=== PATIENT | female | born 1970 | race Caucasian/White ===

== ENCOUNTER → 2020-10-24 | Outpatient (CLI) | payer SELFPAY ==
[~2020-10-24] MED LIST: GADOBUTROL 10 MMOL/10 ML (GADAVIST) VIAL IV ONE
--- NOTE | 2020-10-24 17:52 | Diagnostic Imaging Report ---
PROCEDURE: MR imaging of the brain with and without contrast. TECHNIQUE: Multiplanar, multisequence MR imaging of the brain was performed with and without contrast. INDICATION: Pain behind both eyes since July. Occipital headache. COMPARISON: None available. FINDINGS: No acute ischemia, mass, or hemorrhage. No abnormal enhancement is seen. A small amount of focal T2 hyperintense signal seen in the subcortical white matter, greatest in the bilateral frontal lobes. The ventricles, cortical sulci, and basilar cisterns are symmetric and unremarkable. The sellar and suprasellar regions have a normal appearance. The major intracranial flow voids are intact. The brainstem and posterior fossa are unremarkable. The paranasal sinuses and mastoid air cells demonstrate normal signal characteristics. Bilateral lens implants are noted. The globes and orbits are symmetric and unremarkable. The scalp and calvarium have a normal appearance. IMPRESSION: 1. No acute ischemia, mass, or hemorrhage. No abnormal enhancement. 2. Small amount of focal T2 hyperintense signal in the subcortical white matter of the bilateral frontal lobes. This is nonspecific and may represent sequelae of migraine versus chronic microvascular disease. Dictated by: Dictated on workstation # [id number]
== END ==
LOC: RAD 14:48
PROVIDERS: ATTEND Nurse Practitioner Family
DX: H54.62 Unqualified visual loss, left eye, normal vision right eye (principal)
CPT/HCPCS: 70553

== ENCOUNTER 2020-11-03 19:03 | Emergency (ER) | payer OTHER ==
[~2020-11-03] VITALS: Ht 177.8 cm; Wt 92.5 kg
--- NOTE | 2020-11-03 19:24 | ED General ---
General Stated Complaint: HEAD/ARM/LEG PAIN Source of Information: Patient Exam Limitations: No Limitations History of Present Illness Date Seen by Provider: Nov 03, 2020 Time Seen by Provider: 19:22 Initial Comments To ER with bilateral arm pain bilateral leg pain, severe headache onset 630 this evening. She is been having headaches for which she saw primary care and had an MRI done. This was believed to be related to migraine. She was given a prescription for Imitrex. She took her first Imitrex this evening at 530. She had severe vomiting thereafter. She has light sensitivity. States she is allergic to hydrocodone and oxycodone, the only thing she can take is Dilaudid. Timing/Duration: 1-2 Days Severity: Moderate Associated Systoms: Headaches, Nausea/Vomiting Allergies and Home Medications Allergies Coded Allergies: No Known Drug Allergies (Unverified , 10/24/20) Patient Home Medication List Home Medication List Reviewed: Yes Review of Systems Review of Systems Constitutional: see HPI EENTM: see HPI Respiratory: no symptoms reported Cardiovascular: no symptoms reported Genitourinary: no symptoms reported Musculoskeletal: no symptoms reported Skin: no symptoms reported Psychiatric/Neurological: See HPI, Headache Hematologic/Lymphatic: No Symptoms Reported Immunological/Allergic: no symptoms reported Physical Exam Vital Signs Capillary Refill : Height, Weight, BMI Height: '" Weight: lbs. oz. kg; BMI Method: General Appearance: No Apparent Distress, WD/WN, Other (Wearing dark sunglasses no distress alert and oriented.) Eyes: Bilateral Eye Normal Inspection, Bilateral Eye PERRL, Bilateral Eye EOMI HEENT: PERRL/EOMI, TMs Normal Neck: Full Range of Motion, Normal Inspection Respiratory: No Accessory Muscle Use, No Respiratory Distress Gastrointestinal: Normal Bowel Sounds, Non Tender, Soft Extremity: Normal Capillary Refill, Normal Inspection Neurologic/Psychiatric: Alert, Oriented x3 Skin: Normal Color, Warm/Dry Progress/Results/Core Measures Suspected Sepsis SIRS Temperature: Pulse: Respiratory Rate: Laboratory Tests 11/03/20 19:35: White Blood Count 8.6 Blood Pressure / Mean: Laboratory Tests 11/03/20 19:35: Creatinine 0.97, Platelet Count 169, Total Bilirubin 0.3 Results/Orders Lab Results Laboratory Tests Test 11/03/20 19:35 Range/Units White Blood Count 8.6 4.3-11.0 10^3/uL Red Blood Count 5.47 H 3.80-5.11 10^6/uL Hemoglobin 15.1 11.5-16.0 g/dL Hematocrit 45 35-52 % Mean Corpuscular Volume 83 80-99 fL Mean Corpuscular Hemoglobin 28 25-34 pg Mean Corpuscular Hemoglobin Concent 33 32-36 g/dL Red Cell Distribution Width 12.8 10.0-14.5 % Platelet Count 169 130-400 10^3/uL Mean Platelet Volume 11.3 9.0-12.2 fL Immature Granulocyte % (Auto) 1 % Neutrophils (%) (Auto) 57 42-75 % Lymphocytes (%) (Auto) 31 12-44 % Monocytes (%) (Auto) 8 0-12 % Eosinophils (%) (Auto) 3 0-10 % Basophils (%) (Auto) 1 0-10 % Neutrophils # (Auto) 4.9 1.8-7.8 10^3/uL Lymphocytes # (Auto) 2.7 1.0-4.0 10^3/uL Monocytes # (Auto) 0.7 0.0-1.0 10^3/uL Eosinophils # (Auto) 0.3 0.0-0.3 10^3/uL Basophils # (Auto) 0.1 0.0-0.1 10^3/uL Immature Granulocyte # (Auto) 0.1 0.0-0.1 10^3/uL Sodium Level 134 L 135-145 MMOL/L Potassium Level 4.7 3.6-5.0 MMOL/L Chloride Level 97 L 98-107 MMOL/L Carbon Dioxide Level 24 21-32 MMOL/L Anion Gap 13 5-14 MMOL/L Blood Urea Nitrogen 14 7-18 MG/DL Creatinine 0.97 0.60-1.30 MG/DL Estimat Glomerular Filtration Rate > 60 BUN/Creatinine Ratio 14 Glucose Level 484 *H 70-105 MG/DL Calcium Level 10.0 8.5-10.1 MG/DL Corrected Calcium 9.8 8.5-10.1 MG/DL Total Bilirubin 0.3 0.1-1.0 MG/DL Aspartate Amino Transf (AST/SGOT) 18 5-34 U/L Alanine Aminotransferase (ALT/SGPT) 21 0-55 U/L Alkaline Phosphatase 131 40-136 U/L C-Reactive Protein High Sensitivity 1.30 H 0.00-0.50 MG/DL Total Protein 7.9 6.4-8.2 GM/DL Albumin 4.3 3.2-4.5 GM/DL My Orders Orders - BLANCA HARRIS APRN Cbc With Automated Diff (11/03/20 19:21) Comprehensive Metabolic Panel (11/03/20 19:21) Hs C Reactive Protein (11/03/20 19:21) Ct Head Wo (11/03/20 19:21) Ketorolac Injection (Toradol Injection) (11/03/20 19:30) Prochlorperazine Injection (Compazine In (11/03/20 19:30) Diphenhydramine Injection (Benadryl Inje (11/03/20 19:30) Ns Iv 1000 Ml (Sodium Chloride 0.9%) (11/03/20 19:30) Ns Iv 1000 Ml (Sodium Chloride 0.9%) (11/03/20 20:30) Insulin (Regular) Human (Novolin R (Per (11/03/20 20:30) Beta Hydroxybutyrate (11/03/20 20:18) Medications Given in ED Current Medications Medications Dose Ordered Sig/Holly Route Start Time Stop Time Status Last Admin Dose Admin Diphenhydramine HCl 50 mg ONCE ONCE IVP 11/03/20 19:30 11/03/20 19:31 DC 11/03/20 19:41 50 MG Ketorolac Tromethamine 30 mg ONCE ONCE IVP 11/03/20 19:30 11/03/20 19:31 DC 11/03/20 19:41 30 MG Prochlorperazine Edisylate 10 mg ONCE ONCE IV 11/03/20 19:30 11/03/20 19:31 DC 11/03/20 19:41 10 MG Vital Signs/I&O Capillary Refill : Departure Impression Primary Impression: Headache Additional Impression: Hyperglycemia Disposition: 01 HOME, SELF-CARE Condition: Stable Departure-Patient Inst. Decision time for Depature: 20:26 Referrals: NO,LOCAL PHYSICIAN (PCP/Family) Primary Care Physician BLANCA HARRIS APRN Nov 03, 2020 19:24
[2020-11-03] MEDS ORDERED: PROCHLORPERAZINE 10 MG/2ML INJ (COMPAZINE) IV ONE (19:30)
[2020-11-03] MEDS ORDERED: diphenhydrAMINE 50 MG/ML INJ (BENADRYL) IVP ONE (19:30)
[2020-11-03] MEDS ORDERED: NS IV 1000 ML 1,000 ML IV SCH ×2 (19:30→20:30)
[2020-11-03] MEDS ORDERED: KETOROLAC 30 MG/ML VIAL IVP ONE (19:30)
[2020-11-03 19:53] LABS: BASOPHILS # (AUTO) 0.1 10^3/uL (0.0-0.1); BASOPHILS % (AUTO) 1 % (0-10); EOSINOPHILS # (AUTO) 0.3 10^3/uL (0.0-0.3); EOSINOPHILS % (AUTO) 3 % (0-10); HEMATOCRIT 45 % (35-52); HEMOGLOBIN 15.1 g/dL (11.5-16.0); LYMPHOCYTES # (AUTO) 2.7 10^3/uL (1.0-4.0); LYMPHOCYTES % (AUTO) 31 % (12-44); MEAN CORPUSCULAR HEMOGLOBIN 28 pg (25-34); MEAN CORPUSCULAR HGB CONC 33 g/dL (32-36); MEAN CORPUSCULAR VOLUME 83 fL (80-99); MEAN PLATELET VOLUME 11.3 fL (9.0-12.2); MONOCYTES # (AUTO) 0.7 10^3/uL (0.0-1.0); MONOCYTES % (AUTO) 8 % (0-12); NEUTROPHILS # (AUTO) 4.9 10^3/uL (1.8-7.8); NEUTROPHILS % (AUTO) 57 % (42-75); PLATELET COUNT 169 10^3/uL (130-400); WHITE BLOOD COUNT 8.6 10^3/uL (4.3-11.0)
--- NOTE | 2020-11-03 20:06 | Diagnostic Imaging Report ---
PROCEDURE: CT head without contrast. TECHNIQUE: Multiple contiguous axial images were obtained through the brain without the use of intravenous contrast. Auto Exposure Controls were utilized during the CT exam to meet ALARA standards for radiation dose reduction. INDICATION: Headache, dizziness, and blurry vision. EXAMINATION: CT brain without contrast from 11/03/2020 FINDINGS: There is atrophy. Chronic ischemic changes noted with no acute hemorrhage or infarct. No mass, mass effect or midline shift. No hydrocephalus. There is no acute sinus disease. Visualized mastoid air cells clear. IMPRESSION: 1. No acute process. Dictated by: Dictated on workstation # [id number]
[2020-11-03 20:13] LABS: ALANINE AMINOTRANSFERASE 21 U/L (0-55); ALBUMIN 4.3 GM/DL (3.2-4.5); ALKALINE PHOSPHATASE 131 U/L (40-136); BILIRUBIN,TOTAL 0.3 MG/DL (0.1-1.0); BUN/CREATININE RATIO 14; CARBON DIOXIDE 24 MMOL/L (21-32); CHLORIDE 97 MMOL/L (98-107); CREATININE SERUM 0.97 MG/DL (0.60-1.30); GFR ESTIMATED > 60; POTASSIUM 4.7 MMOL/L (3.6-5.0); SODIUM 134 MMOL/L (135-145); TOTAL PROTEIN 7.9 GM/DL (6.4-8.2)
[2020-11-03 20:17] LABS: GLUCOSE 484 MG/DL (70-105)
[2020-11-03] MEDS ORDERED: inSUlin (REGULAR) HUMAN 1 UNIT/0.01 ML (CHARGE PER UNIT) IV SCH (20:30)
[2020-11-03 21:20] VITALS: BP 148/76
== END 2020-11-03 21:23 | disposition home or self-care (01) ==
LOC: EDUNIT# 19:03 → ER 19:05
DX: R51.9 Headache, unspecified (principal); R73.9 Hyperglycemia, unspecified
CPT/HCPCS: 36415; 70450; 80053; 82010; 82962; 85025; 86141

== ENCOUNTER → 2021-03-08 | Outpatient (CLI) | payer OTHER ==
--- NOTE | 2021-03-08 18:04 | Diagnostic Imaging Report ---
Clinical indication: Patient with history of previous cervical spine surgery in 1994. Patient is having head and neck pain impairing her vision. Exam: MRI of the cervical spine performed without IV contrast. Sequences include sagittal T1, sagittal T2, sagittal T2 fat-sat, and axial T2. Comparison: None. Findings: There is no acute cervical spine fracture or dislocation. There is mixed Modic type I and type II degenerative signal changes involving the T6-T7 endplate regions. There is no significant paraspinal soft tissue abnormality. Limited visualization of posterior fossa is unremarkable. There is slight deformity of the cervical cord seen at C5-C6 level due to degenerative disease. There is no definite cord signal abnormality. There is no significant paraspinal soft tissue abnormality. There is multilevel cervical spine vertebral body spurs and facet arthropathy. C1-C2: There is no significant central canal narrowing. C2-C3: There is diffuse disk bulge with small to moderate-sized central posterior disk herniation and mild bilateral facet arthropathy. There is ligament flavum buckling. There is moderate central canal stenosis. There is no significant neural foramen narrowing. C3-C4: There is a small posterior disk bulge. There is mild to moderate central canal stenosis. There is no significant neural foramen narrowing. C4-C5: There is a subtle mild diffuse disk bulge with mild to moderate loss of disk space height. There is mild central canal narrowing. There is no significant neural foramen narrowing. C5-C6: There is a diffuse disk bulge and moderate loss of disk space height with endplate irregularity. There is severe central canal stenosis. There is no significant neural foramen narrowing. C6-C7: There is a diffuse disk bulge with mild loss of disk space height. There are small bilateral uncinate spurs. There is moderate to severe central canal stenosis. There is severe left neural foramen narrowing and mild right neural foramen narrowing. C7-T1: Unremarkable. Impression: There is severe multilevel cervical spine degenerative disk disease, as described above. Dictated by: Dictated on workstation # [id number]
== END ==
LOC: RAD 14:00
DX: M48.02 Spinal stenosis, cervical region (principal); M50.31 Other cervical disc degeneration, high cervical region; G43.011 Migraine without aura, intractable, with status migrainosus; Z98.890 Other specified postprocedural states
CPT/HCPCS: 72141

== ENCOUNTER → 2021-05-04 | Outpatient (CLI) | payer OTHER | LOC: EDUNIT# 03-22 13:22 → WOUNDCARE 12:55 | PROVIDERS: ATTEND Surgery | DX: E11.621 Type 2 diabetes mellitus with foot ulcer (principal); E11.42 Type 2 diabetes mellitus with diabetic polyneuropathy; L97.522 Non-pressure chronic ulcer of other part of left foot with fat layer exposed; T65.222A Toxic effect of tobacco cigarettes, intentional self-harm, initial encounter; F17.218 Nicotine dependence, cigarettes, with other nicotine-induced disorders | CPT/HCPCS: 11042; A6197; G0463 ==

== ENCOUNTER → 2021-06-02 | Outpatient (CLI) | payer OTHER | LOC: WOUNDCARE 09:27 | PROVIDERS: ATTEND Surgery | DX: E11.621 Type 2 diabetes mellitus with foot ulcer (principal); I96 Gangrene, not elsewhere classified; E11.42 Type 2 diabetes mellitus with diabetic polyneuropathy; L97.522 Non-pressure chronic ulcer of other part of left foot with fat layer exposed; T65.222A Toxic effect of tobacco cigarettes, intentional self-harm, initial encounter; F17.218 Nicotine dependence, cigarettes, with other nicotine-induced disorders | CPT/HCPCS: 11042; G0463 ==

== ENCOUNTER → 2021-06-16 | Outpatient (CLI) | payer OTHER | LOC: WOUNDCARE 08:55 | PROVIDERS: ATTEND Surgery | DX: E11.621 Type 2 diabetes mellitus with foot ulcer (principal); E11.42 Type 2 diabetes mellitus with diabetic polyneuropathy; L97.522 Non-pressure chronic ulcer of other part of left foot with fat layer exposed; T65.222A Toxic effect of tobacco cigarettes, intentional self-harm, initial encounter; F17.218 Nicotine dependence, cigarettes, with other nicotine-induced disorders | CPT/HCPCS: 99212 ==

== ENCOUNTER 2021-11-03 12:23 | Emergency (ER) | payer OTHER ==
[~2021-11-03] VITALS: Ht 175 cm; Wt 84.8 kg
[2021-11-03 12:44] LABS: BASOPHILS # (AUTO) 0.1 10^3/uL (0.0-0.1); BASOPHILS % (AUTO) 1 % (0-10); EOSINOPHILS # (AUTO) 0.3 10^3/uL (0.0-0.3); EOSINOPHILS % (AUTO) 3 % (0-10); HEMATOCRIT 43 % (35-52); LYMPHOCYTES # (AUTO) 2.9 10^3/uL (1.0-4.0); LYMPHOCYTES % (AUTO) 30 % (12-44); MEAN CORPUSCULAR HEMOGLOBIN 28 pg (25-34); MEAN CORPUSCULAR HGB CONC 33 g/dL (32-36); MEAN CORPUSCULAR VOLUME 86 fL (80-99); MONOCYTES # (AUTO) 0.8 10^3/uL (0.0-1.0); MONOCYTES % (AUTO) 8 % (0-12); NEUTROPHILS # (AUTO) 5.5 10^3/uL (1.8-7.8); NEUTROPHILS % (AUTO) 57 % (42-75); PLATELET COUNT 191 10^3/uL (130-400); WHITE BLOOD COUNT 9.6 10^3/uL (4.3-11.0)
--- NOTE | 2021-11-03 12:44 | ED Lower Extremity ---
General Chief Complaint: Lower Extremity Stated Complaint: R FOOT STEPPED ON PAIN Nursing Triage Note: PT AMBULATORY TO ER WITH FRIEND. PT REPORTS STEPPED ON A SCREW WHILE IN HER YARD THIS AM WITH HER R FOOT, PT WAS WEARING A SHOE AT THE THE TIME. 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 PT DOES HAVE A HX OF DIABETES, REPORTS SUGARS HAVE BEEN RUNNING IN HIGH 200, LOW 300'S. PT STATES SHE DID FALL YESTERDAY IN WHICH HER L FOOT IS HURTING WELL. Source: patient Exam Limitations: no limitations History of Present Illness Date Seen by Provider: Nov 03, 2021 Time Seen by Provider: 12:41 Initial Comments To ER with reports that she stepped on a screw while walking through her yard this morning. She had shoes on. She is diabetic with severe neuropathy and did not feel it. She is up-to-date on her tetanus vaccinations. She reports that she has minimal pain in the right foot now. She also fell about a month ago and has some bruising to the left foot. She is scheduled to see foot surgeon at [facility] on 11/20/2021. She is a diabetic. She states her sugars typically run around 300. She has had some nausea and poor food and fluid intake for the past few days. Onset: just prior to arrival Severity: moderate Pain/Injury Location: bilateral foot Method of Injury: direct blow, fell Modifying Factors: Worse With Movement Allergies and Home Medications Allergies Coded Allergies: No Known Drug Allergies (Unverified , 10/24/20) Patient Home Medication List Home Medication List Reviewed: Yes Cephalexin (Cephalexin) 500 Mg Tablet, 500 MG PO TID Prescribed by: BLANCA HARRIS on 11/03/211315 Ciprofloxacin HCl (Ciprofloxacin HCl) 500 Mg Tablet, 500 MG PO BID Prescribed by: BLANCA HARRIS on 11/03/21 131 Hydrocodone/Acetaminophen (Hydrocodone-Acetamin 5-325 mg) 1 Each Tablet, 1 TAB PO Q4H PRN for PAIN-MODERATE (5-7) Prescribed by: BLANCA HARRIS on 11/03/211315 Ondansetron (Ondansetron Odt) 4 Mg Tab.rapdis, 4 MG PO Q6H PRN for NAUSEA/VOMITING Prescribed by: BLANCA HARRIS on 11/03/21 131 Review of Systems Constitutional: see HPI EENTM: see HPI Respiratory: no symptoms reported Cardiovascular: no symptoms reported Genitourinary: no symptoms reported Musculoskeletal: see HPI Skin: no symptoms reported Psychiatric/Neurological: No Symptoms Reported Past Triuelu-Fnembz-Gvavoy Hx Patient Social History Tobacco Use?: Yes Tobacco type used: Cigarettes Smoking Status: Current Everyday Smoker Use of E-Cig and/or Vaping dev: No Substance use?: No Alcohol Use?: No Pt feels they are or have been: No Immunizations Up To Date Influenza Vaccine Up-to-Date: Yes; Up-to-Date Physical Exam Vital Signs Vital Signs - First Documented 11/03/21 12:25 Temp 36.1 Pulse 115 Resp 18 B/P (MAP) 118/76 (90) Pulse Ox 98 O2 Delivery Room Air Capillary Refill : Height, Weight, BMI Height: '" Weight: lbs. oz. kg; 27.00 BMI Method: General Appearance: WD/WN, no apparent distress HEENT: PERRL/EOMI, normal ENT inspection Respiratory: no respiratory distress, no accessory muscle use Hips: bilateral hip non-tender, bilateral hip normal inspection, bilateral hip normal range of motion Legs: bilateral leg non-tender, bilateral leg normal inspection, bilateral leg normal range of motion Knees: bilateral knee other (Sparse petechial rash bilateral lower extremities from just above the ankle distally. The right foot has a puncture wound to the plantar surface without active bleeding. The left foot has a Charcot deformity with loss of the arch of the foot, she has a big callus over the plantar surface first MTP joint. She has hemorrhagic bulla that appears to be nearly dried at this point near that callus. She also has some purplish discoloration of the third and fourth toe tips plantar surface. She is status post amputation of the second toe.) Ankles: bilateral ankle non-tender, bilateral ankle normal inspection, bilateral ankle normal range of motion Feet: bilateral foot other (See above) Neurologic/Psychiatric: alert, normal mood/affect, oriented x 3 Skin: normal color, warm/dry Progress/Results/Core Measures Results/Orders Lab Results Laboratory Tests Test 11/03/21 12:40 Range/Units White Blood Count 9.6 4.3-11.0 10^3/uL Red Blood Count 4.99 3.80-5.11 10^6/uL Hemoglobin 14.0 11.5-16.0 g/dL Hematocrit 43 35-52 % Mean Corpuscular Volume 86 80-99 fL Mean Corpuscular Hemoglobin 28 25-34 pg Mean Corpuscular Hemoglobin Concent 33 32-36 g/dL Red Cell Distribution Width 13.1 10.0-14.5 % Platelet Count 191 130-400 10^3/uL Mean Platelet Volume 11.0 9.0-12.2 fL Immature Granulocyte % (Auto) 1 % Neutrophils (%) (Auto) 57 42-75 % Lymphocytes (%) (Auto) 30 12-44 % Monocytes (%) (Auto) 8 0-12 % Eosinophils (%) (Auto) 3 0-10 % Basophils (%) (Auto) 1 0-10 % Neutrophils # (Auto) 5.5 1.8-7.8 10^3/uL Lymphocytes # (Auto) 2.9 1.0-4.0 10^3/uL Monocytes # (Auto) 0.8 0.0-1.0 10^3/uL Eosinophils # (Auto) 0.3 0.0-0.3 10^3/uL Basophils # (Auto) 0.1 0.0-0.1 10^3/uL Immature Granulocyte # (Auto) 0.1 0.0-0.1 10^3/uL Sodium Level 136 135-145 MMOL/L Potassium Level 3.7 3.6-5.0 MMOL/L Chloride Level 104 98-107 MMOL/L Carbon Dioxide Level 22 21-32 MMOL/L Anion Gap 10 5-14 MMOL/L Blood Urea Nitrogen 18 7-18 MG/DL Creatinine 0.73 0.60-1.30 MG/DL Estimat Glomerular Filtration Rate 99 BUN/Creatinine Ratio 25 Glucose Level 196 H 70-105 MG/DL Calcium Level 9.7 8.5-10.1 MG/DL Corrected Calcium 9.6 8.5-10.1 MG/DL Total Bilirubin 0.5 0.1-1.0 MG/DL Aspartate Amino Transf (AST/SGOT) 18 5-34 U/L Alanine Aminotransferase (ALT/SGPT) 19 0-55 U/L Alkaline Phosphatase 90 40-136 U/L Total Protein 7.1 6.4-8.2 GM/DL Albumin 4.1 3.2-4.5 GM/DL Beta-Hydroxybutyrate (Chem panel) 0.15 0.00-0.27 MMOL/L My Orders Orders - BLANCA HARRIS APRN Cbc With Automated Diff (11/03/21 12:38) Beta Hydroxybutyrate (11/03/21 12:38) Comprehensive Metabolic Panel (11/03/21 12:38) Ed Iv/Invasive Line Start (11/03/21 12:38) Foot, Bilateral, 2 Views (11/03/21 12:38) Ondansetron Injection (Zofran Injectio (11/03/21 12:45) Lactated Ringers (Lr 1000 Ml Iv Solution (11/03/21 12:45) Piperacillin Sodium/Tazobactam (Zosyn Vi (11/03/21 13:15) Medications Given in ED Current Medications Medications Dose Ordered Sig/Holly Route Start Time Stop Time Status Last Admin Dose Admin Ondansetron HCl 8 mg ONCE ONCE IVP 11/03/21 12:45 11/03/21 12:46 DC 11/03/21 12:47 8 MG Piperacillin Sod/ Tazobactam Sod 4.5 gm/Sodium Chloride 100 ml @ 200 mls/hr ONCE ONCE IV 11/03/21 13:15 11/03/21 13:44 11/03/21 13:23 200 MLS/HR Vital Signs/I&O 11/03/21 11/03/21 12:25 12:47 Temp 36.1 Pulse 115 109 Resp 18 18 B/P (MAP) 118/76 (90) 106/69 Pulse Ox 98 98 O2 Delivery Room Air Room Air Blood Pressure Mean: 90 Departure Communication (Admissions) SHe tells me that she is allergic to Levaquin because it makes her vomit. However she has taken Cipro before without adverse effect. Given that this is a plantar foot puncture wound through the sole of her shoe we need to cover for Pseudomonas empirically will use Keflex and Cipro. Impression Primary Impression: Puncture wound of plantar aspect of right foot without complication Additional Impression: Charcot foot due to diabetes mellitus Disposition: 01 HOME, SELF-CARE Condition: Stable Departure-Patient Inst. Decision time for Depature: 13:13 Referrals: [facility] (PCP) Primary Care Physician LETY HERR APRN (Family) Primary Care Physician Patient Instructions: Wound Care ED Add. Discharge Instructions: 1. Change the dressing on your foot daily. Return to ER for any worsening. Follow-up with your doctor next week. Take the antibiotics as directed. All discharge instructions reviewed with patient and/or family. Voiced understanding. Scripts Ondansetron (Ondansetron Odt) 4 Mg Tab.rapdis 4 MG PO Q6H PRN for NAUSEA/VOMITING, #10 TAB Prov: BLANCA HARRIS APRN 11/03/21 Hydrocodone/Acetaminophen (Hydrocodone-Acetamin 5-325 mg) 1 Each Tablet 1 TAB PO Q4H PRN for PAIN-MODERATE (5-7), #10 TAB Prov: BLANCA HARRIS APRN 11/03/21 Cephalexin (Cephalexin) 500 Mg Tablet 500 MG PO TID, #15 TAB Prov: BLANCA HARRIS APRN 11/03/21 Ciprofloxacin HCl (Ciprofloxacin HCl) 500 Mg Tablet 500 MG PO BID, #10 TAB Prov: BLANCA HARRIS APRN 11/03/21 BLANCA HARRIS APRN Nov 03, 2021 12:44
[2021-11-03] MEDS ORDERED: LACTATED RINGERS 1,000 ML IV SCH (12:45)
[2021-11-03] MEDS ORDERED: ONDANSETRON 4 MG/2 ML (SDV) Z0FRAN IVP ONE (12:45)
[2021-11-03 13:00] LABS: ALBUMIN 4.1 GM/DL (3.2-4.5)
[2021-11-03 13:01] LABS: POTASSIUM 3.7 MMOL/L (3.6-5.0)
[2021-11-03 13:02] LABS: CALCIUM 9.7 MG/DL (8.5-10.1)
[2021-11-03 13:03] LABS: TOTAL PROTEIN 7.1 GM/DL (6.4-8.2)
[2021-11-03 13:05] LABS: BILIRUBIN,TOTAL 0.5 MG/DL (0.1-1.0)
[2021-11-03 13:07] LABS: CREATININE SERUM 0.73 MG/DL (0.60-1.30)
--- NOTE | 2021-11-03 13:08 | Diagnostic Imaging Report ---
INDICATION: Stepped on a screw. TIME OF EXAM: 1:01 PM The right foot demonstrates the metatarsals and phalanges to be intact. Midfoot shows some mild degenerative changes. Hindfoot does demonstrate large plantar calcaneal spur. No fractures are seen. Left foot demonstrates significant midfoot degenerative changes. There appears to be some slight widening between the 1st and 2nd metatarsal with alignment of the base of the 2nd metatarsal with the medial cuneiform to be slightly offset. This can be seen with a Lisfranc injury. There is a large plantar calcaneal spur. No fractures are seen. 2nd toe has been amputated. IMPRESSION: Significant degenerative changes of the midfoot on the left with possible Lisfranc ligament tear. No acute bony abnormality is detected. No definite radiopaque soft tissue foreign bodies in either foot are identified. Dictated by: Dictated on workstation # [id number]
[2021-11-03] MEDS ORDERED: PIPERACILLIN SODIUM/TAZOBACTAM 4.5 GM in NS (IVPB) 100 ML IV ONE (13:15)
[2021-11-03] MEDS ORDERED: CEPH500T PO (13:16)
[2021-11-03] MEDS ORDERED: CIPR500T5 PO (13:16)
[2021-11-03] MEDS ORDERED: ACHD5005 PO (13:16)
[2021-11-03] MEDS ORDERED: ONDA4TAB11 PO (13:16)
[2021-11-03 13:57] VITALS: BP 129/74
== END 2021-11-03 13:58 | disposition home or self-care (01) ==
LOC: EDUNIT# 12:23 → ER 12:26
DX: S91.331A Puncture wound without foreign body, right foot, initial encounter (principal); E11.610 Type 2 diabetes mellitus with diabetic neuropathic arthropathy; A52.16 Charcot's arthropathy (tabetic); F17.210 Nicotine dependence, cigarettes, uncomplicated; Z89.422 Acquired absence of other left toe(s); W45.8XXA Other foreign body or object entering through skin, initial encounter; Y92.096 Garden or yard of other non-institutional residence as the place of occurrence of the external cause
CPT/HCPCS: 36415; 80053; 82010; 85025